=== PATIENT | male | born 1960 | race Caucasian/White ===

== ENCOUNTER 2018-10-30 21:28 | Emergency (ER) | payer MEDICAID | END 2018-10-30 22:52 | disposition home or self-care (01) | LOC: E/R 21:28 | DX: F41.9 Anxiety disorder, unspecified (principal) | CPT/HCPCS: 99282; Z7502 ==

== ENCOUNTER 2019-07-18 01:42 | Emergency (ER) | payer OTHER, MEDICAID ==
[2019-07-18] MEDS: SOD CHLORIDE 0.9% 1,000 ML IV (02:21)
[2019-07-18 02:23] LABS: ADD MAN DIFF? NO
[2019-07-18 02:28] LABS: BASOPHIL # 0.1 10^3/ul (0.0-0.1); BASOPHILS % 1.7 % (0.0-2.0); EOSINOPHILS # 0.4 10^3/ul (0.0-0.5); EOSINOPHILS % 6.2 % (0.0-7.0); HEMOGLOBIN 16.2 g/dl (14.0-18.0); LYMPHOCYTES # 2.3 10^3/ul (0.8-2.9); LYMPHOCYTES % 32.6 % (15.0-51.0); MEAN CORPUSCULAR HEMOGLOBIN 30.6 pg (29.0-33.0); MEAN CORPUSCULAR HGB CONC 34.5 g/dl (32.0-37.0); MEAN CORPUSCULAR VOLUME 88.8 fl (82.0-101.0); MEAN PLATELET VOLUME 9.7 fl (7.4-10.4); MONOCYTE # 0.6 10^3/ul (0.3-0.9); NEUTROPHIL # 3.5 10^3/ul (1.6-7.5); NEUTROPHILS % 49.4 % (39.0-77.0); PLATELET COUNT 246 10^3/UL (140-415); RED BLOOD COUNT 5.29 10^6/ul (4.70-6.10); RED CELL DISTRIBUTION WIDTH 12.3 % (11.5-14.5)
[2019-07-18 02:28] LABS: WHITE BLOOD COUNT 7.1 10^3/ul (4.8-10.8)
[2019-07-18 02:45] LABS: ALANINE AMINOTRANSFERASE 24 IU/L (13-69); ALBUMIN 3.8 g/dl (3.3-4.9); ALBUMIN/GLOBULIN RATIO 1.18; ALKALINE PHOSPHATASE 62 IU/L (42-121); ANION GAP 8 (5-13); ASPARTATE AMINO TRANSFERASE 20 IU/L (15-46); BILIRUBIN,INDIRECT 0.1 mg/dl (0-1.1); BILIRUBIN,TOTAL 0.1 mg/dl (0.2-1.3); BLOOD UREA NITROGEN 12 mg/dl (7-20); CALCIUM 8.1 mg/dl (8.4-10.2); CARBON DIOXIDE 27 mmol/L (21-31); CHLORIDE 108 mmol/L (97-110); CREATININE 0.81 mg/dl (0.61-1.24); Estimated GFR > 60 mL/min (>60); GLUCOSE 95 mg/dl (70-220); POTASSIUM 3.8 mmol/L (3.5-5.1); SODIUM 143 mmol/L (135-144)
[2019-07-18 02:47] LABS: INR 0.96; PROTIME 12.9 Sec (11.9-14.9)
[2019-07-18 02:48] LABS: PARTIAL THROMBOPLASTIN TIME 29.1 Sec (23.0-35.0)
[2019-07-18 02:56] LABS: ACETAMINOPHEN < 10.0 ug/ml (10.0-30.0); SALICYLATE < 1.0 mg/dl (5.0-30.0)
[2019-07-18] MEDS ORDERED: DIPHTH/TET/ACEL PERTUSS (ADULT) 0.5 ML VIAL IM* (04:30)
[2019-07-18] MEDS: HALOPERIDOL 5 MG INJ IM (06:50)
[2019-07-18 07:00] LABS: ADD UMIC NO; UR ASCORBIC ACID NEGATIVE (NEGATIVE); UR BILIRUBIN (Dip) NEGATIVE (NEGATIVE); UR BLOOD (Dip) NEGATIVE (NEGATIVE); UR CLARITY CLEAR (CLEAR); UR COLOR STRAW (YELLOW); UR GLUCOSE (Dip) NEGATIVE (NEGATIVE); UR KETONES (Dip) NEGATIVE (NEGATIVE); UR LEUKOCYTE ESTERASE (Dip) NEGATIVE Leu/ul (NEGATIVE); UR NITRITE (Dip) NEGATIVE (NEGATIVE); UR SPECIFIC GRAVITY (Dip) 1.004 (1.003-1.030); UR TOTAL PROTEIN (Dip) NEGATIVE (NEGATIVE); UR UROBILINOGEN (Dip) NEGATIVE (NEGATIVE)
[2019-07-18 08:38] LABS: AMPHETAMINE/METHAMPHETAMINE Negative (NEGATIVE); BARBITURATES Negative (NEGATIVE); CANNABINOIDS Negative (NEGATIVE); COCAINE Negative (NEGATIVE); OPIATES Positive (NEGATIVE)
[2019-07-18 08:48] LABS: BENZODIAZEPINES Positive (NEGATIVE)
== END 2019-07-18 13:23 | disposition home or self-care (01) ==
LOC: E/R 01:42
DX: F13.10 Sedative, hypnotic or anxiolytic abuse, uncomplicated (principal); F10.120 Alcohol abuse with intoxication, uncomplicated; R41.82 Altered mental status, unspecified
CPT/HCPCS: 36415; 70450; 71045; 72125; 80053; 80307; 81003; 85025; 85610; 85730; 90715; 96372; 99285-25